=== PATIENT | female | born 1965 | race Caucasian/White ===

== ENCOUNTER 2020-04-01 11:17 | Emergency (ER) | payer MEDICARE, OTHER ==
[~2020-04-01] VITALS: Ht 167.6 cm; Wt 63.5 kg
[2020-04-01 11:26] VITALS: BP 113/82
--- NOTE | 2020-04-01 12:05 | NUR ---
Patient discharged to board and care in stable condition. Written and verbal after care instructions given. Patient verbalizes understanding of instruction. Called taxi for transportation.
== END 2020-04-01 12:05 | disposition home or self-care (01) ==
LOC: ER 11:23
DX: M54.5 Low back pain (principal); F20.9 Schizophrenia, unspecified; W18.39XA Other fall on same level, initial encounter; Y93.89 Activity, other specified; Y92.89 Other specified places as the place of occurrence of the external cause; Y99.8 Other external cause status

== ENCOUNTER 2023-06-24 13:28 | Inpatient (IN) | payer MEDICARE, OTHER ==
[~2023-06-24] VITALS: Ht 165.1 cm; Wt 48.1 kg
[2023-06-24 18:00] VITALS: BP 133/81; TEMP 98.2; O2SAT 98
[2023-06-24] MEDS ORDERED: TEMAZEPAM 7.5 MG CAPSULE PO PRN (18:00)
[2023-06-24] MEDS ORDERED: MAGNESIUM HYDROXIDE 30 ML UDC PO PRN (18:00)
[2023-06-24] MEDS ORDERED: MAG HYDROX/AL HYDROX/SIMETH 30 ML UDC PO PRN (18:00)
[2023-06-24] MEDS ORDERED: ACETAMINOPHEN 325 MG TABLET PO PRN ×2 (18:00→20:00)
[2023-06-24] MEDS ORDERED: BLOOD SUGAR DIAGNOSTIC 1 EACH STRIP IN ONE (18:00)
[2023-06-24] MEDS ORDERED: clonazePAM 0.5 MG TABLET PO PRN (18:00)
[2023-06-24] MEDS ORDERED: CLON2TAB11 PO (18:10)
[2023-06-24] MEDS ORDERED: QUET300T2 PO (18:10)
[2023-06-24] MEDS ORDERED: LORA-259 PO (18:10)
[2023-06-24] MEDS ORDERED: LEVO125T PO (18:10)
[2023-06-24] MEDS ORDERED: CALC-883 PO (18:10)
[2023-06-24] MEDS ORDERED: PYRI100T22 PO (18:10)
[2023-06-24] MEDS ORDERED: ATOR20TA PO (18:10)
[2023-06-24] MEDS ORDERED: DESM0.2T4 PO (18:10)
[2023-06-24] MEDS ORDERED: DIVA-78 PO (18:10)
[2023-06-24] MEDS ORDERED: LEVE750T10 PO (18:10)
[2023-06-24] MEDS ORDERED: ACET-868 PO (18:10)
[2023-06-24] MEDS ORDERED: OXYB5TAB16 PO (18:10)
[2023-06-24] MEDS ORDERED: DOCU100T2 PO (18:10)
[2023-06-24] MEDS ORDERED: SENN-261 PO (18:10)
[2023-06-24] MEDS ORDERED: HYDR-3976 PO (18:10)
[2023-06-24] MEDS ORDERED: HYDROCODONE/APAP 7.5/325MG 1 EACH TABLET PO PRN (20:00)
[2023-06-24 20:26] VITALS: BP 128/89; TEMP 98.8; O2SAT 100
[2023-06-24] MEDS ORDERED: HYDROCODONE/APAP 5/325MG TABLET PO PRN (20:30)
[2023-06-24] MEDS: LEVETIRACETAM (250 MG) 250 MG TABLET PO SCH (20:51)
[2023-06-24] MEDS: ATORVASTATIN 10 MG TABLET PO SCH (21:38)
[2023-06-24] MEDS: DESMOPRESSIN ACETATE 0.1 MG TABLET PO SCH (21:39)
[2023-06-25] MEDS: LEVOTHYROXINE SODIUM 125 MCG TABLET PO SCH (08:48)
[2023-06-25] MEDS: SENNOSIDES 8.6 MG TABLET PO SCH ×3 (08:49→16:30)
[2023-06-25] MEDS: LEVETIRACETAM (250 MG) 250 MG TABLET PO SCH ×3 (08:49→20:27)
[2023-06-25] MEDS: OXYBUTYNIN CHLORIDE 5 MG TABLET PO SCH ×3 (08:49→16:29)
[2023-06-25] MEDS: DOCUSATE SODIUM 100 MG CAPSULE PO SCH ×3 (08:49→16:29)
[2023-06-25] MEDS: PYRIDOXINE HCL 50 MG TABLET PO SCH (08:49)
[2023-06-25] MEDS: CALCIUM CARB 250MG /VITAMIN D 1 UDTAB PO SCH (08:49)
[2023-06-25 10:14] VITALS: BP 125/66; TEMP 98.7; O2SAT 96
[2023-06-25 16:00] VITALS: BP 155/65; TEMP 98.1; O2SAT 100
[2023-06-25] MEDS: ENSURE ENLIVE 237 ML LIQUID (VANILLA) PO SCH (16:31)
[2023-06-25] MEDS: DESMOPRESSIN ACETATE 0.1 MG TABLET PO SCH (21:27)
[2023-06-25] MEDS: ATORVASTATIN 10 MG TABLET PO SCH (21:28)
[2023-06-26] MEDS: LEVOTHYROXINE SODIUM 125 MCG TABLET PO SCH (07:30)
[2023-06-26 08:00] VITALS: BP 100/87; TEMP 98.2; O2SAT 97
[2023-06-26] MEDS: CALCIUM CARB 250MG /VITAMIN D 1 UDTAB PO SCH (09:00)
[2023-06-26] MEDS: ENSURE ENLIVE 237 ML LIQUID (VANILLA) PO SCH ×2 (09:00→17:45)
[2023-06-26] MEDS: DOCUSATE SODIUM 100 MG CAPSULE PO SCH ×2 (09:00→17:00)
[2023-06-26] MEDS: LEVETIRACETAM (250 MG) 250 MG TABLET PO SCH ×2 (09:00→21:00)
[2023-06-26] MEDS: OXYBUTYNIN CHLORIDE 5 MG TABLET PO SCH ×2 (09:00→17:00)
[2023-06-26] MEDS: PYRIDOXINE HCL 50 MG TABLET PO SCH (09:00)
[2023-06-26] MEDS: SENNOSIDES 8.6 MG TABLET PO SCH ×2 (09:00→17:00)
[2023-06-26] MEDS: DESMOPRESSIN ACETATE 0.1 MG TABLET PO SCH (21:52)
[2023-06-26] MEDS: QUETIAPINE FUMARATE 100 MG TABLET PO SCH (21:52)
[2023-06-26] MEDS: ATORVASTATIN 10 MG TABLET PO SCH (21:52)
[2023-06-27] MEDS: LEVOTHYROXINE SODIUM 125 MCG TABLET PO SCH (07:30)
[2023-06-27 08:00] VITALS: BP 123/55; TEMP 97.9; O2SAT 98
[2023-06-27] MEDS: CALCIUM CARB 250MG /VITAMIN D 1 UDTAB PO SCH (09:00)
[2023-06-27] MEDS: DOCUSATE SODIUM 100 MG CAPSULE PO SCH ×2 (09:00→17:00)
[2023-06-27] MEDS: LEVETIRACETAM (250 MG) 250 MG TABLET PO SCH ×2 (09:00→21:00)
[2023-06-27] MEDS: PYRIDOXINE HCL 50 MG TABLET PO SCH (09:00)
[2023-06-27] MEDS: OXYBUTYNIN CHLORIDE 5 MG TABLET PO SCH ×2 (09:00→17:00)
[2023-06-27] MEDS: SENNOSIDES 8.6 MG TABLET PO SCH ×2 (09:00→17:00)
[2023-06-27] MEDS: ENSURE ENLIVE 237 ML LIQUID (VANILLA) PO SCH ×2 (09:18→17:19)
[2023-06-27 16:00] VITALS: BP 117/52; TEMP 98.1; O2SAT 96
[2023-06-27] MEDS: DESMOPRESSIN ACETATE 0.1 MG TABLET PO SCH (22:00)
[2023-06-27] MEDS: ATORVASTATIN 10 MG TABLET PO SCH (22:00)
[2023-06-27] MEDS: QUETIAPINE FUMARATE 100 MG TABLET PO SCH (22:00)
[2023-06-28] MEDS: LEVOTHYROXINE SODIUM 125 MCG TABLET PO SCH (07:30)
[2023-06-28 08:00] VITALS: BP 151/69; TEMP 97.9; O2SAT 98
[2023-06-28] MEDS: OXYBUTYNIN CHLORIDE 5 MG TABLET PO SCH ×2 (08:24→17:00)
[2023-06-28] MEDS: DOCUSATE SODIUM 100 MG CAPSULE PO SCH ×2 (08:24→17:00)
[2023-06-28] MEDS: CALCIUM CARB 250MG /VITAMIN D 1 UDTAB PO SCH (08:24)
[2023-06-28] MEDS: PYRIDOXINE HCL 50 MG TABLET PO SCH (08:24)
[2023-06-28] MEDS: LEVETIRACETAM (250 MG) 250 MG TABLET PO SCH ×2 (08:24→21:00)
[2023-06-28] MEDS: SENNOSIDES 8.6 MG TABLET PO SCH ×2 (08:24→17:00)
[2023-06-28] MEDS: ENSURE ENLIVE 237 ML LIQUID (VANILLA) PO SCH ×2 (08:25→17:43)
[2023-06-28 16:00] VITALS: BP 126/69; TEMP 97.9; O2SAT 100
[2023-06-28 20:00] VITALS: BP 136/74; TEMP 97.6; O2SAT 97
[2023-06-28] MEDS: DESMOPRESSIN ACETATE 0.1 MG TABLET PO SCH (21:49)
[2023-06-28] MEDS: ATORVASTATIN 10 MG TABLET PO SCH (21:50)
[2023-06-28] MEDS: QUETIAPINE FUMARATE 100 MG TABLET PO SCH (21:50)
[2023-06-29] MEDS: LEVOTHYROXINE SODIUM 125 MCG TABLET PO SCH (07:30)
[2023-06-29 08:00] VITALS: BP 114/59; TEMP 97.6; O2SAT 97
[2023-06-29] MEDS: LEVETIRACETAM (250 MG) 250 MG TABLET PO SCH ×2 (09:00→21:00)
[2023-06-29] MEDS: SENNOSIDES 8.6 MG TABLET PO SCH ×2 (09:00→17:00)
[2023-06-29] MEDS: PYRIDOXINE HCL 50 MG TABLET PO SCH (09:00)
[2023-06-29] MEDS: OXYBUTYNIN CHLORIDE 5 MG TABLET PO SCH ×2 (09:00→17:00)
[2023-06-29] MEDS: CALCIUM CARB 250MG /VITAMIN D 1 UDTAB PO SCH (09:00)
[2023-06-29] MEDS: DOCUSATE SODIUM 100 MG CAPSULE PO SCH ×2 (09:00→17:00)
[2023-06-29] MEDS: ENSURE ENLIVE 237 ML LIQUID (VANILLA) PO SCH ×2 (09:00→17:00)
[2023-06-29 16:00] VITALS: BP 118/63; TEMP 97.6; O2SAT 94
[2023-06-29] MEDS: DESMOPRESSIN ACETATE 0.1 MG TABLET PO SCH (21:11)
[2023-06-29] MEDS: ATORVASTATIN 10 MG TABLET PO SCH (21:12)
[2023-06-29] MEDS: QUETIAPINE FUMARATE 100 MG TABLET PO SCH (21:12)
[2023-06-30] MEDS: LEVOTHYROXINE SODIUM 125 MCG TABLET PO SCH (07:30)
[2023-06-30 08:00] VITALS: BP 146/64; TEMP 97.9; O2SAT 98
[2023-06-30] MEDS: DOCUSATE SODIUM 100 MG CAPSULE PO SCH ×2 (08:32→17:00)
[2023-06-30] MEDS: OXYBUTYNIN CHLORIDE 5 MG TABLET PO SCH ×2 (08:33→17:00)
[2023-06-30] MEDS: PYRIDOXINE HCL 50 MG TABLET PO SCH (08:33)
[2023-06-30] MEDS: LEVETIRACETAM (250 MG) 250 MG TABLET PO SCH ×3 (08:33→21:18)
[2023-06-30] MEDS: SENNOSIDES 8.6 MG TABLET PO SCH ×2 (08:33→17:00)
[2023-06-30] MEDS: CALCIUM CARB 250MG /VITAMIN D 1 UDTAB PO SCH (08:33)
[2023-06-30] MEDS: ENSURE ENLIVE 237 ML LIQUID (VANILLA) PO SCH ×2 (08:33→17:00)
[2023-06-30 16:00] VITALS: BP 138/66; TEMP 98.4; O2SAT 94
[2023-06-30 21:09] VITALS: BP 135/60; TEMP 98.3; O2SAT 98
[2023-06-30] MEDS: ATORVASTATIN 10 MG TABLET PO SCH ×2 (21:18→21:22)
[2023-06-30] MEDS: QUETIAPINE FUMARATE 100 MG TABLET PO SCH ×2 (21:18→21:22)
[2023-06-30] MEDS: DESMOPRESSIN ACETATE 0.1 MG TABLET PO SCH ×2 (21:19→21:21)
[2023-07-01] MEDS: LEVOTHYROXINE SODIUM 125 MCG TABLET PO SCH (07:30)
[2023-07-01 08:00] VITALS: BP 120/58; TEMP 97.9; O2SAT 98
[2023-07-01] MEDS: OXYBUTYNIN CHLORIDE 5 MG TABLET PO SCH ×2 (08:14→16:19)
[2023-07-01] MEDS: DOCUSATE SODIUM 100 MG CAPSULE PO SCH ×2 (08:14→16:19)
[2023-07-01] MEDS: LEVETIRACETAM (250 MG) 250 MG TABLET PO SCH ×2 (08:15→21:00)
[2023-07-01] MEDS: SENNOSIDES 8.6 MG TABLET PO SCH ×2 (08:15→16:19)
[2023-07-01] MEDS: CALCIUM CARB 250MG /VITAMIN D 1 UDTAB PO SCH (08:15)
[2023-07-01] MEDS: PYRIDOXINE HCL 50 MG TABLET PO SCH (08:16)
[2023-07-01] MEDS: ENSURE ENLIVE 237 ML LIQUID (VANILLA) PO SCH ×2 (08:17→17:06)
[2023-07-01 16:00] VITALS: BP 126/61; TEMP 97.9; O2SAT 97
[2023-07-01 19:55] VITALS: BP 125/80; TEMP 97.9; O2SAT 100
[2023-07-01] MEDS: QUETIAPINE FUMARATE 100 MG TABLET PO SCH (21:19)
[2023-07-01] MEDS: ATORVASTATIN 10 MG TABLET PO SCH (21:19)
[2023-07-01] MEDS: DESMOPRESSIN ACETATE 0.1 MG TABLET PO SCH (21:19)
[2023-07-02] MEDS: LEVOTHYROXINE SODIUM 125 MCG TABLET PO SCH ×2 (07:30→07:53)
[2023-07-02 08:00] VITALS: BP 116/51; TEMP 98.6; O2SAT 97
[2023-07-02] MEDS: ENSURE ENLIVE 237 ML LIQUID (VANILLA) PO SCH ×2 (09:00→17:00)
[2023-07-02] MEDS: LEVETIRACETAM (250 MG) 250 MG TABLET PO SCH ×2 (09:00→21:00)
[2023-07-02] MEDS: OXYBUTYNIN CHLORIDE 5 MG TABLET PO SCH ×2 (09:00→17:00)
[2023-07-02] MEDS: CALCIUM CARB 250MG /VITAMIN D 1 UDTAB PO SCH (09:00)
[2023-07-02] MEDS: PYRIDOXINE HCL 50 MG TABLET PO SCH (09:00)
[2023-07-02] MEDS: SENNOSIDES 8.6 MG TABLET PO SCH ×2 (09:00→17:00)
[2023-07-02] MEDS: DOCUSATE SODIUM 100 MG CAPSULE PO SCH ×2 (09:00→17:00)
[2023-07-02 16:00] VITALS: BP 113/54; TEMP 98.7; O2SAT 96
[2023-07-02 16:09] VITALS: BP 113/54; TEMP 98.7; O2SAT 96
[2023-07-02 21:15] VITALS: BP 128/60; TEMP 98.4; O2SAT 97
[2023-07-02] MEDS: QUETIAPINE FUMARATE 100 MG TABLET PO SCH (21:30)
[2023-07-02] MEDS: ATORVASTATIN 10 MG TABLET PO SCH (21:30)
[2023-07-02] MEDS: DESMOPRESSIN ACETATE 0.1 MG TABLET PO SCH (21:30)
[2023-07-03] MEDS: LEVOTHYROXINE SODIUM 125 MCG TABLET PO SCH (07:30)
[2023-07-03] MEDS: PYRIDOXINE HCL 50 MG TABLET PO SCH (09:00)
[2023-07-03] MEDS: DOCUSATE SODIUM 100 MG CAPSULE PO SCH ×2 (09:00→17:00)
[2023-07-03] MEDS: CALCIUM CARB 250MG /VITAMIN D 1 UDTAB PO SCH (09:00)
[2023-07-03] MEDS: OXYBUTYNIN CHLORIDE 5 MG TABLET PO SCH ×2 (09:00→17:00)
[2023-07-03] MEDS: SENNOSIDES 8.6 MG TABLET PO SCH ×2 (09:00→17:00)
[2023-07-03] MEDS: LEVETIRACETAM (250 MG) 250 MG TABLET PO SCH ×2 (09:00→21:25)
[2023-07-03] MEDS: ENSURE ENLIVE 237 ML LIQUID (VANILLA) PO SCH ×2 (09:40→17:43)
[2023-07-03] MEDS ORDERED: HALOPERIDOL LACTATE INJ 5 MG/ML VIAL IM ONE (11:30)
[2023-07-03] MEDS: HALOPERIDOL 5 MG TABLET PO SCH ×2 (11:30→17:25)
[2023-07-03] MEDS ORDERED: HALOPERIDOL LACTATE INJ 5 MG/ML VIAL IM SCH (12:30)
[2023-07-03] MEDS ORDERED: HALOPERIDOL LACTATE INJ 5 MG/ML VIAL IM PRN (12:30)
[2023-07-03 16:00] VITALS: BP 124/89; TEMP 98.7; O2SAT 98
[2023-07-03] MEDS ORDERED: LORAZEPAM INJ 2 MG/ML VIAL IM PRN (18:30)
[2023-07-03 20:20] VITALS: BP 145/81; TEMP 98.6; O2SAT 99
[2023-07-03] MEDS: DESMOPRESSIN ACETATE 0.1 MG TABLET PO SCH (21:25)
[2023-07-03] MEDS: ATORVASTATIN 10 MG TABLET PO SCH (21:25)
[2023-07-04 08:00] VITALS: BP 113/56; TEMP 97.8; O2SAT 96
[2023-07-04] MEDS: OXYBUTYNIN CHLORIDE 5 MG TABLET PO SCH ×2 (08:41→17:05)
[2023-07-04] MEDS: LEVOTHYROXINE SODIUM 125 MCG TABLET PO SCH (08:41)
[2023-07-04] MEDS: HALOPERIDOL 5 MG TABLET PO SCH ×2 (08:42→17:05)
[2023-07-04] MEDS: LEVETIRACETAM (250 MG) 250 MG TABLET PO SCH ×3 (08:42→21:33)
[2023-07-04] MEDS: DOCUSATE SODIUM 100 MG CAPSULE PO SCH ×2 (08:42→17:05)
[2023-07-04] MEDS: CALCIUM CARB 250MG /VITAMIN D 1 UDTAB PO SCH (08:42)
[2023-07-04] MEDS: PYRIDOXINE HCL 50 MG TABLET PO SCH (08:42)
[2023-07-04] MEDS: SENNOSIDES 8.6 MG TABLET PO SCH ×2 (08:42→17:05)
[2023-07-04] MEDS: ENSURE ENLIVE 237 ML LIQUID (VANILLA) PO SCH ×2 (09:07→17:08)
[2023-07-04 16:00] VITALS: BP 96/59; TEMP 98.1; O2SAT 97
[2023-07-04 20:00] VITALS: BP 104/61; TEMP 98.1; O2SAT 97
[2023-07-04] MEDS: ATORVASTATIN 10 MG TABLET PO SCH ×2 (21:33→21:45)
[2023-07-04] MEDS: DESMOPRESSIN ACETATE 0.1 MG TABLET PO SCH ×2 (21:33→21:45)
[2023-07-05] MEDS: LEVOTHYROXINE SODIUM 125 MCG TABLET PO SCH (07:30)
[2023-07-05 08:00] VITALS: BP 129/64; TEMP 97.6; O2SAT 95
[2023-07-05] MEDS: HALOPERIDOL 5 MG TABLET PO SCH ×2 (09:00→16:31)
[2023-07-05] MEDS: PYRIDOXINE HCL 50 MG TABLET PO SCH (09:00)
[2023-07-05] MEDS: LEVETIRACETAM (250 MG) 250 MG TABLET PO SCH ×2 (09:00→21:37)
[2023-07-05] MEDS: SENNOSIDES 8.6 MG TABLET PO SCH ×2 (09:00→16:31)
[2023-07-05] MEDS: OXYBUTYNIN CHLORIDE 5 MG TABLET PO SCH ×2 (09:00→16:31)
[2023-07-05] MEDS: DOCUSATE SODIUM 100 MG CAPSULE PO SCH ×2 (09:00→16:31)
[2023-07-05] MEDS: CALCIUM CARB 250MG /VITAMIN D 1 UDTAB PO SCH (09:00)
[2023-07-05] MEDS: ENSURE ENLIVE 237 ML LIQUID (VANILLA) PO SCH ×2 (09:18→16:31)
[2023-07-05 16:00] VITALS: BP 126/60; TEMP 97.6; O2SAT 98
[2023-07-05] MEDS: ATORVASTATIN 10 MG TABLET PO SCH (21:37)
[2023-07-05] MEDS: DESMOPRESSIN ACETATE 0.1 MG TABLET PO SCH (21:37)
[2023-07-06 08:00] VITALS: BP 105/52; TEMP 98.6; O2SAT 96
[2023-07-06] MEDS: DOCUSATE SODIUM 100 MG CAPSULE PO SCH ×2 (08:27→16:33)
[2023-07-06] MEDS: LEVETIRACETAM (250 MG) 250 MG TABLET PO SCH ×2 (08:28→21:54)
[2023-07-06] MEDS: PYRIDOXINE HCL 50 MG TABLET PO SCH (08:28)
[2023-07-06] MEDS: LEVOTHYROXINE SODIUM 125 MCG TABLET PO SCH (08:28)
[2023-07-06] MEDS: CALCIUM CARB 250MG /VITAMIN D 1 UDTAB PO SCH (08:28)
[2023-07-06] MEDS: SENNOSIDES 8.6 MG TABLET PO SCH ×2 (08:28→16:33)
[2023-07-06] MEDS: HALOPERIDOL 5 MG TABLET PO SCH ×2 (08:28→16:33)
[2023-07-06] MEDS: OXYBUTYNIN CHLORIDE 5 MG TABLET PO SCH ×2 (08:28→16:33)
[2023-07-06] MEDS: ENSURE ENLIVE 237 ML LIQUID (VANILLA) PO SCH ×2 (08:39→16:33)
[2023-07-06 16:00] VITALS: BP 100/48; TEMP 98.6; O2SAT 94
[2023-07-06 21:10] VITALS: BP 105/57; TEMP 98.3; O2SAT 96
[2023-07-06] MEDS: Z GUARD REMEDY 4 OZ OINT TP SCH (21:14)
[2023-07-06] MEDS: DESMOPRESSIN ACETATE 0.1 MG TABLET PO SCH (21:55)
[2023-07-06] MEDS: ATORVASTATIN 10 MG TABLET PO SCH (21:55)
[2023-07-07] MEDS: LEVOTHYROXINE SODIUM 125 MCG TABLET PO SCH ×2 (07:30→08:10)
[2023-07-07 08:00] VITALS: BP 117/54; TEMP 97.8; O2SAT 97
[2023-07-07] MEDS: SENNOSIDES 8.6 MG TABLET PO SCH ×3 (08:10→17:00)
[2023-07-07] MEDS: HALOPERIDOL 5 MG TABLET PO SCH ×2 (08:10→17:11)
[2023-07-07] MEDS: OXYBUTYNIN CHLORIDE 5 MG TABLET PO SCH ×3 (08:10→17:00)
[2023-07-07] MEDS: DOCUSATE SODIUM 100 MG CAPSULE PO SCH ×3 (08:10→17:00)
[2023-07-07] MEDS: PYRIDOXINE HCL 50 MG TABLET PO SCH ×2 (08:10→08:28)
[2023-07-07] MEDS: LEVETIRACETAM (250 MG) 250 MG TABLET PO SCH ×2 (08:11→21:33)
[2023-07-07] MEDS: CALCIUM CARB 250MG /VITAMIN D 1 UDTAB PO SCH (08:11)
[2023-07-07] MEDS: Z GUARD REMEDY 4 OZ OINT TP SCH ×2 (08:15→17:00)
[2023-07-07] MEDS: ENSURE ENLIVE 237 ML LIQUID (VANILLA) PO SCH ×2 (08:29→17:00)
[2023-07-07 16:00] VITALS: BP 119/68; TEMP 97.7; O2SAT 97
[2023-07-07 20:28] VITALS: BP 113/63; TEMP 98.1; O2SAT 96
[2023-07-07] MEDS: ATORVASTATIN 10 MG TABLET PO SCH (21:34)
[2023-07-07] MEDS: DESMOPRESSIN ACETATE 0.1 MG TABLET PO SCH (21:35)
[2023-07-08 08:00] VITALS: BP 108/52; TEMP 97.6; O2SAT 95
[2023-07-08] MEDS: LEVOTHYROXINE SODIUM 125 MCG TABLET PO SCH (08:13)
[2023-07-08] MEDS: DOCUSATE SODIUM 100 MG CAPSULE PO SCH ×2 (09:00→17:05)
[2023-07-08] MEDS: SENNOSIDES 8.6 MG TABLET PO SCH ×2 (09:00→17:05)
[2023-07-08] MEDS: CALCIUM CARB 250MG /VITAMIN D 1 UDTAB PO SCH (09:09)
[2023-07-08] MEDS: PYRIDOXINE HCL 50 MG TABLET PO SCH (09:09)
[2023-07-08] MEDS: LEVETIRACETAM (250 MG) 250 MG TABLET PO SCH ×2 (09:10→20:39)
[2023-07-08] MEDS: HALOPERIDOL 5 MG TABLET PO SCH ×2 (09:10→17:05)
[2023-07-08] MEDS: OXYBUTYNIN CHLORIDE 5 MG TABLET PO SCH ×2 (09:10→17:05)
[2023-07-08] MEDS: ENSURE ENLIVE 237 ML LIQUID (VANILLA) PO SCH ×2 (09:13→17:06)
[2023-07-08] MEDS: Z GUARD REMEDY 4 OZ OINT TP SCH ×2 (09:14→17:04)
[2023-07-08 16:00] VITALS: BP 102/53; TEMP 98.1; O2SAT 97
[2023-07-08 20:36] VITALS: BP 102/81; TEMP 98.1; O2SAT 97
[2023-07-08] MEDS: DESMOPRESSIN ACETATE 0.1 MG TABLET PO SCH (21:38)
[2023-07-08] MEDS: ATORVASTATIN 10 MG TABLET PO SCH (21:38)
[2023-07-09] MEDS: LEVOTHYROXINE SODIUM 125 MCG TABLET PO SCH (07:48)
[2023-07-09 08:00] VITALS: BP 100/52; TEMP 98.6; O2SAT 97
[2023-07-09] MEDS: DOCUSATE SODIUM 100 MG CAPSULE PO SCH ×2 (08:57→09:00)
[2023-07-09] MEDS: OXYBUTYNIN CHLORIDE 5 MG TABLET PO SCH ×2 (08:57→09:00)
[2023-07-09] MEDS: HALOPERIDOL 5 MG TABLET PO SCH (08:58)
[2023-07-09] MEDS: LEVETIRACETAM (250 MG) 250 MG TABLET PO SCH (08:58)
[2023-07-09] MEDS: SENNOSIDES 8.6 MG TABLET PO SCH ×2 (08:59→09:00)
[2023-07-09] MEDS: CALCIUM CARB 250MG /VITAMIN D 1 UDTAB PO SCH ×2 (08:59→09:00)
[2023-07-09] MEDS: PYRIDOXINE HCL 50 MG TABLET PO SCH (08:59)
[2023-07-09] MEDS: ENSURE ENLIVE 237 ML LIQUID (VANILLA) PO SCH (09:00)
[2023-07-09] MEDS: Z GUARD REMEDY 4 OZ OINT TP SCH (09:09)
== END 2023-07-09 13:48 | DRG 885 ==
LOC: GPS 17:38
PROVIDERS: ADMIT Psychiatry & Neurology Psychiatry; ATTEND Nurse Practitioner Acute Care
DX: F31.64 Bipolar disorder, current episode mixed, severe, with psychotic features (principal); G93.41 Metabolic encephalopathy; F17.210 Nicotine dependence, cigarettes, uncomplicated; E78.5 Hyperlipidemia, unspecified; E03.9 Hypothyroidism, unspecified; Z91.148 Patient's other noncompliance with medication regimen for other reason; Z91.199 Patient's noncompliance with other medical treatment and regimen due to unspecified reason; L60.3 Nail dystrophy; B35.1 Tinea unguium; S82.392A Other fracture of lower end of left tibia, initial encounter for closed fracture; X58.XXXA Exposure to other specified factors, initial encounter; Y92.89 Other specified places as the place of occurrence of the external cause; Z79.890 Hormone replacement therapy; Z79.899 Other long term (current) drug therapy
CPT/HCPCS: 36415; 73590-TC; 82962-TC; J1630; J2060

== ENCOUNTER 2023-08-03 21:55 | Emergency (ER) | payer MEDICARE, OTHER ==
[~2023-08-03] VITALS: Ht 167.6 cm; Wt 61.2 kg
[~2023-08-03 21:55] MED LIST: ACET-868 PO; ATOR20TA PO; CALC-883 PO; CLON2TAB11 PO; DESM0.2T4 PO; DIVA-78 PO; DOCU100T2 PO; HYDR-3976 PO; LEVE750T10 PO; LEVO125T PO; LORA-259 PO; OXYB5TAB16 PO; PYRI100T22 PO; QUET300T2 PO; SENN-261 PO
[2023-08-03 22:25] VITALS: TEMP 98
[2023-08-03] MEDS ORDERED: LORAZEPAM INJ 2 MG/ML VIAL ONE (22:51)
[2023-08-03] MEDS ORDERED: LORAZEPAM INJ 2 MG/ML VIAL IM ONE (23:00)
[2023-08-04] MEDS ORDERED: HALOPERIDOL LACTATE INJ 5 MG/ML VIAL IM ONE
[2023-08-04 00:50] LABS: BASOPHILS # (AUTO) 0.1 K/uL (0.0-0.2); BASOPHILS % (AUTO) 1.5 % (0.0-2.0); EOSINOPHILS % (AUTO) 0.6 % (0.0-6.0); HEMATOCRIT 35 % (33-45); HEMOGLOBIN 11.7 g/dL (11.5-14.8); LYMPHOCYTES # (AUTO) 1.6 K/uL (0.8-4.8); LYMPHOCYTES % (AUTO) 27.9 % (20.0-44.0); MEAN CORPUSCULAR HEMOGLOBIN 32 PG (26.0-33.0); MEAN CORPUSCULAR HGB CONC 34 g/dl (31.0-36.0); MEAN CORPUSCULAR VOLUME 94 fL (82-100); MONOCYTES # (AUTO) 0.5 K/uL (0.1-1.30); MONOCYTES % (AUTO) 8.3 % (2.0-12.0); NEUTROPHILS # (AUTO) 3.6 K/uL (1.8-8.9); NEUTROPHILS % (AUTO) 61.7 % (43.0-81.0); PLATELET COUNT (AUTO) 351 K/uL (150-450); RED BLOOD CELL COUNT(AUTO) 3.68 MIL/uL (4.0-5.2); RED CELL DISTRIBUTION WIDTH 15.4 % (11.5-15.0); WHITE BLOOD COUNT (AUTO) 5.8 K/uL (4.3-11.0)
[2023-08-04 01:07] LABS: CALCIUM, SERUM 9.6 mg/dL (8.5-10.1); CARBON DIOXIDE 27 mmol/L (21-32); CHLORIDE 102 mmol/L (98-107); CREATININE 0.6 mg/dL (0.6-1.3); GLUCOSE 92 mg/dL (74-106); POTASSIUM 3.4 mmol/L (3.5-5.1); SODIUM SERUM 138 mmol/L (136-145); UREA NITROGEN, BLOOD 32 mg/dL (7-18)
[2023-08-04 01:12] LABS: ALANINE AMINOTRANSFERASE 21 U/L (12-78); ALBUMIN 3.9 g/dL (3.4-5.0); ALKALINE PHOSPHATASE 74 U/L (46-116); ASPARTATE AMINOTRANSFERASE 19 U/L (15-37); BILIRUBIN,DIRECT 0.1 mg/dL (0.0-0.2); BILIRUBIN,TOTAL 0.5 mg/dL (0.2-1.0); TOTAL PROTEIN, SERUM 7.9 g/dL (6.4-8.2)
[2023-08-04 05:55] VITALS: BP 131/68; O2SAT 99
== END 2023-08-04 05:57 ==
LOC: ER 22:11
DX: G40.909 Epilepsy, unspecified, not intractable, without status epilepticus (principal); E78.5 Hyperlipidemia, unspecified; F41.9 Anxiety disorder, unspecified; F31.9 Bipolar disorder, unspecified; E03.9 Hypothyroidism, unspecified; Z79.899 Other long term (current) drug therapy
CPT/HCPCS: 99285; 70450; 71045; 96372; 93005; 36415 ×2; 85025; 80048; 80076; 84484 ×2; J2060